=== PATIENT | female | born 1995 | race Caucasian/White ===

== ENCOUNTER 2017-10-29 18:35 | Emergency (ER) | payer BC ==
--- NOTE | 2017-10-29 18:57 | UC ---
Complaint Female HPI - HPI Summary HPI Summary: 22-year-old otherwise healthy female college student presents with 3-4 days of dysuria, frequency and urgency. She has been taking cranberry pills without much benefit. She has noticed today that her urine is a little bit darker. She has had mild suprapubic discomfort without any vaginal discharge. She completed her most recent menses on Saturday. She is sexually active. She is not had any fever, nausea or vomiting and only minimal back discomfort. - History Of Current Complaint Stated Complaint: URINARY Time Seen by Provider: 10/29/17 18:50 Hx Obtained From: Patient - Allergies/Home Medications Allergies/Adverse Reactions: Allergies Allergy/AdvReac Type Severity Reaction Status Date / Time dust mites, roaches Allergy Itching in Uncoded 10/29/17 19:05 throat shrimp, corn Allergy Unknown Uncoded 10/29/17 19:05 Reaction Details, ID'ed via blood work Home Medications: Home Medications Methenamine/Sodium Salicylate [Cystex Plus Tablet] 1 tab PO Q8H PRN 10/29/17 [ History Confirmed 10/29/17] PMH/Surg Hx/FS Hx/Imm Hx Previously Healthy: Yes GI/ History: Other - Denies kidney stones Other GI/ History: denies kidney stones - Surgical History Surgical History: None - Family History Known Family History: Positive: Other - No kidney stones Negative: Renal Disease - Social History Occupation: Student Substance Use Type: None Smoking Status (MU): Never Smoked Tobacco Review of Systems Constitutional: Chills Cardiovascular: Negative Gastrointestinal: Abdominal Pain Genitourinary: Dysuria, Frequency, Urgency All Other Systems Reviewed And Are Negative: Yes Physical Exam Triage Information Reviewed: Yes Appearance: Well-Appearing, No Pain Distress, Well-Nourished Vital Signs Reviewed: Yes Eye Exam: Normal ENT: Positive: Normal ENT inspection Neck: Positive: Supple Respiratory: Positive: Lungs clear Cardiovascular: Positive: RRR Abdomen Description: Positive: Nontender, No Organomegaly, Soft Bowel Sounds: Positive: Present Musculoskeletal: Positive: Strength Intact, Other: - No CVA tenderness Neurological Exam: Normal Neurological: Positive: Alert Skin Exam: Normal Diagnostics - Laboratory Diagnostic Studies Completed/Ordered: Urinalysis [id number]: 2+ blood, 1+ leukocyte esterase. Urine test: Negative Complaint Female Dx - Course Course Of Treatment: Patient with no significant tenderness and mostly urinary symptoms. Urinalysis is underwhelming but this may be due to the patient's treatment at home. She does have some bladder tenderness that smiled but no symptoms consistent with renal colic. I have sent off the urine for GC/ chlamydia. I will start her on Macrobid and have her [facility]. - Differential Dx/Diagnosis Differential Diagnosis/HQI/PQRI: Renal Colic, Sexually Transmitted Disease, Urinary Tract Infection Provider Diagnoses: acute cystitis Discharge - Sign-Out/Discharge Documenting (check all that apply): Patient Departure All imaging exams completed and their final reports reviewed: No Studies - Discharge Plan Condition: Improved Disposition: HOME Prescriptions: Nitrofurantoin Monohyd/M-Cryst [Macrobid 100 mg Capsule] 100 mg PO BID #14 cap Phenazopyridine 200 mg (NF) [Pyridium 200 MG tab *] 200 mg PO TID #9 tab Patient Education Materials: Urinary Tract Infection in Women (ED) Referrals: [facility] [Outside] Additional Instructions: Return with fever, vomiting, increased discomfort, new symptoms, worse or other concerns. Drink plenty of fluids, cranberry juice may help. - Billing Disposition and Condition Condition: IMPROVED Disposition: Home
[2017-10-29] MEDS ORDERED: Nitrofurantoin Macrocrystals* 50 MG CAP PO ONE (19:40)
== END 2017-10-29 19:44 | disposition home or self-care (01) ==
LOC: UCCORT 18:35
DX: N30.00 Acute cystitis without hematuria (principal)
CPT/HCPCS: 81003; 84702; 87086; 87491; 87591; 99202; A9270-GY; G0463

== ENCOUNTER 2019-01-13 11:25 | Emergency (ER) | payer BC ==
[2019-01-13] MEDS ORDERED: Ibuprofen TAB* 600 MG PO ONE (12:38)
--- NOTE | 2019-01-13 13:13 | UC ---
Throat Pain/Nasal Kiran HPI - HPI Summary HPI Summary: 23-year-old female comes in with a chief complaint of upper respiratory tract infection symptoms for about 7 days and a sore throat with postnasal drip for about 2 days. Throat hurts worse when she swallows. She does have sinus pressure and yellow rhinorrhea. She does feel like her throat is swollen. No complaint of any difficulty breathing. She is fatigued. No history of asthma. - History of Current Complaint Chief Complaint: UCGeneralIllness Stated Complaint: ST,FEVER Time Seen by Provider: 01/13/19 13:01 Hx Last Menstrual Period: 12/26/18 Pain Intensity: 8 - Allergies/Home Medications Allergies/Adverse Reactions: Allergies Allergy/AdvReac Type Severity Reaction Status Date / Time dust mites, roaches Allergy Itching in Uncoded 01/13/19 11:55 throat shrimp, corn Allergy Unknown Uncoded 01/13/19 11:55 Reaction Details, ID'ed via blood work PMH/Surg Hx/FS Hx/Imm Hx Previously Healthy: Yes - Surgical History Surgical History: Yes Surgery Procedure, Year, and Place: appendectomy 2009. L ACL repair 2012 - Family History Known Family History: Positive: Other - No kidney stones Negative: Renal Disease - Social History Alcohol Use: Rare Substance Use Type: None Smoking Status (MU): Never Smoked Tobacco Review of Systems All Other Systems Reviewed And Are Negative: Yes Constitutional: Positive: Fever, Fatigue, Other - SEE HPI Skin: Positive: Negative Eyes: Positive: Negative ENT: Positive: Sore Throat, Nasal Discharge, Sinus Congestion, Sinus Pain/ Tenderness Respiratory: Positive: Negative Cardiovascular: Positive: Negative Gastrointestinal: Positive: Negative Motor: Positive: Negative Neurovascular: Positive: Negative Musculoskeletal: Positive: Negative Neurological: Positive: Negative Psychological: Positive: Negative Is Patient Immunocompromised?: No Physical Exam Triage Information Reviewed: Yes Appearance: No Pain Distress, Well-Nourished, Ill-Appearing - MILD Vital Signs: Initial Vital Signs Temp 97.6 F 01/13/19 11:56 Pulse 99 01/13/19 11:56 Resp 16 01/13/19 11:56 BP 105/67 01/13/19 11:56 Pulse Ox 99 01/13/19 11:56 Vital Signs Reviewed: Yes Eye Exam: Normal Eyes: Positive: Conjunctiva Clear ENT: Positive: Pharyngeal erythema, Nasal congestion, Nasal drainage, Uvula midline. Negative: Tonsillar swelling, Tonsillar exudate, Muffled voice, Hoarse voice Neck: Positive: Supple Respiratory: Positive: Lungs clear, Normal breath sounds, No respiratory distress Cardiovascular: Positive: RRR Musculoskeletal: Positive: Strength Intact, ROM Intact Neurological: Positive: Alert, Muscle Tone Normal Psychological: Positive: Age Appropriate Behavior Skin Exam: Normal Throat Pain/Nasal Course/Dx - Course Course Of Treatment: DISCUSSED VIRAL VERSES BACTERIAL INFECTIONS AND THE ROLE OF ANTIBIOTICS. THE PATIENT PREFERS TO BE ON ANTIBIOTICS AT THIS TIME. - Differential Dx/Diagnosis Provider Diagnosis: Sinusitis, Pharyngitis Discharge ED - Sign-Out/Discharge Documenting (check all that apply): Patient Departure All imaging exams completed and their final reports reviewed: No Studies - Discharge Plan Condition: Stable Disposition: HOME Prescriptions: Amoxicillin PO (*) [Amoxicillin 875 MG (*)] 875 mg PO BID #20 tab Fluticasone NASAL SPRAY 50MCG* [Flonase NASAL SPRAY 50MCG*] 2 spray BOTH NARES DAILY #1 btl Patient Education Materials: Pharyngitis (ED), Sinusitis (ED) Referrals: [facility] [Outside] Additional Instructions: FOLLOW UP WITH YOUR DOCTOR IF NOT COMPLETELY IMPROVED. GET REEVALUATED SOONER IF NOT IMPROVING OR WORSE OR ANY QUESTIONS OR CONCERNS. - Billing Disposition and Condition Condition: STABLE Disposition: Home
== END 2019-01-13 13:21 | disposition home or self-care (01) ==
LOC: UCCORT 11:25
DX: J32.9 Chronic sinusitis, unspecified (principal); J02.9 Acute pharyngitis, unspecified; R53.83 Other fatigue; Z91.09 Other allergy status, other than to drugs and biological substances; Z91.013 Allergy to seafood
CPT/HCPCS: 87651; 99212; A9270-GY; G0463

== ENCOUNTER 2019-05-01 18:29 | Emergency (ER) | payer BC, OTHER ==
[2019-05-01 18:48] VITALS: BP 108/68
[2019-05-01] MEDS ORDERED: Ondansetron ODT TAB* 4 MG PO ONE ×2 (19:07→20:04)
[2019-05-01 19:08] LABS: Influenza A Molecular Negative (Negative); Influenza B Molecular Negative (Negative)
--- NOTE | 2019-05-01 20:00 | UC ---
General HPI - HPI Summary HPI Summary: 23 yo who drank 4 seltzers with alcohol last night(?5%) along with cranberry and vodka, maybe 2-3 ounces of vodka. has felt nauseated and unwell today without vomiting, and comes for assessment. Had URI last week, overall resolved, without recent fever. Last voided this morning. Last stool several days ago, not unusual for her. - History of Current Complaint Chief Complaint: UCGeneralIllness Stated Complaint: STOMACH ACHE, DIZZINESS Time Seen by Provider: 05/01/19 19:49 Hx Obtained From: Patient, Family/[employer] - here with friend Hx Last Menstrual Period: 04/04/19 Onset/Duration: Sudden Onset, Lasting Hours Timing: Constant Onset Severity: Moderate Current Severity: Mild Pain Intensity: 0 Associated Signs & Symptoms: Positive: Decreased Oral Intake, Nausea. Negative : Abdominal Pain, Chest Pain, Diarrhea, Diaphoresis, Fever, Headache - Allergy/Home Medications Allergies/Adverse Reactions: Allergies Allergy/AdvReac Type Severity Reaction Status Date / Time dust mites, roaches Allergy Itching in Uncoded 05/01/19 18:48 throat shrimp, corn Allergy Unknown Uncoded 05/01/19 18:48 Reaction Details, ID'ed via blood work Home Medications: Home Medications NK [No Home Medications Reported] 05/01/19 [History Confirmed 05/01/19] PMH/Surg Hx/FS Hx/Imm Hx Previously Healthy: Yes - Surgical History Surgical History: Yes Surgery Procedure, Year, and Place: appendectomy 2009. L ACL repair 2012 - Family History Known Family History: Positive: Diabetes, Other - No kidney stones Negative: Renal Disease - Social History Occupation: Student Lives: Dormitory/Roommates Alcohol Use: Occasionally Substance Use Type: None Smoking Status (MU): Never Smoked Tobacco Review of Systems All Other Systems Reviewed And Are Negative: Yes Constitutional: Positive: Fatigue Skin: Positive: Negative Eyes: Positive: Negative ENT: Positive: Negative Respiratory: Positive: Negative Cardiovascular: Positive: Negative Gastrointestinal: Positive: Nausea. Negative: Abdominal Pain, Vomiting, Diarrhea Genitourinary: Positive: Negative Motor: Positive: Negative Neurovascular: Positive: Negative Musculoskeletal: Positive: Negative Neurological/Mental Status: Positive: Negative Psychological: Positive: Negative Is Patient Immunocompromised?: No Physical Exam Triage Information Reviewed: Yes Appearance: No Pain Distress, Thin - Slender, looks a little pale but in no acute distress with stable vital signs. Vital Signs: Initial Vital Signs Temp 98.4 F 05/01/19 18:39 Pulse 90 05/01/19 18:39 Resp 14 05/01/19 18:39 BP 108/68 05/01/19 18:39 Pulse Ox 100 05/01/19 18:39 Vital Signs Reviewed: Yes Eye Exam: Normal, Other - HOWARD, normal eom Eyes: Positive: Conjunctiva Clear ENT: Positive: Pharynx normal, TMs normal Neck: Positive: Supple, Nontender, No Lymphadenopathy Respiratory: Positive: Lungs clear, Normal breath sounds Cardiovascular: Positive: RRR, No Murmur Abdomen Description: Positive: Nontender, No Organomegaly, Soft Musculoskeletal Exam: Normal Neurological Exam: Normal Psychological Exam: Normal Skin Exam: Normal Course/Dx - Course Course Of Treatment: Improved following zofran and is tolerating ghulam bren. Normal physical exam. Discussed rehydration and advancing diet, rest and fluids. follow up if no imrpovement. - Differential Dx - Multi-Symptom Differential Diagnoses: Other - dehydration, alcohol excess, gastroenterits - Diagnoses Provider Diagnosis: Nausea alone, Excessive drinking of alcohol Discharge ED - Sign-Out/Discharge Documenting (check all that apply): Patient Departure All imaging exams completed and their final reports reviewed: No Studies - Discharge Plan Condition: Stable Disposition: HOME Patient Education Materials: Acute Nausea and Vomiting (ED) Referrals: No Primary Care Phys,NOPCP [Primary Care Provider] - Additional Instructions: The persistent nausea is most likely the result of excess alcohol. Additional ondansetron can be taken later tonight to relieve any persistent nausea. Aim to drink 2 liters of fluids in the next 24 hours. Ensure that you eat easily digestible nutritions foods: soup broth, smoothies, cooked fruits or veg, oatmeal. Follow up if you have increasing abdominal pain or progressive symptoms. Avoid alcohol intake for the next several days, until completely better. - Billing Disposition and Condition Condition: STABLE Disposition: Home
== END 2019-05-01 20:21 | disposition home or self-care (01) ==
LOC: UCCORT 18:29
DX: R11.0 Nausea (principal); F10.10 Alcohol abuse, uncomplicated; Z91.09 Other allergy status, other than to drugs and biological substances; Z91.013 Allergy to seafood; Z91.018 Allergy to other foods
CPT/HCPCS: 99212; A9270-GY; G0463